=== PATIENT | male | born 1970 | race Hispanic/Latino ===

== ENCOUNTER → 2018-10-26 | Day surgery (SDC) | payer OTHER ==
[~2018-10-26] MED LIST: DEXAMETHASONE SOD PHOS INJ 4 MG/ML VIAL ONE; EPINEPHRINE HCL 1:1000 1ML 1 MG/ML AMP ONE; FENTANYL CITRATE/PF 100MCG/2 ML INJ ONE; GLYCOPYRROLATE INJ 1MG/ 5 ML SYR ONE; LIDOCAINE HCL 2% JELLY 5 ML TUBE ONE; LIDOCAINE HCL 2% LOCAL INJ 5 ML SDV VIAL INJ ONE; METFORMIN HCL500 MG PO; MIDAZOLAM HCL 2 MG/2 ML VIAL ONE; NEOSTIGMINE 5 MG/5ML SYR ONE; ONDANSETRON HCL INJ 2MG/ML 2ML 2 MG/ML VIAL ONE; PHENYLEPHRINE HCL 1% NA SPR 15 ML BTL ONE; PROPOFOL IV EMULSION 10 MG/ML 20 ML VIAL ONE; ROCURONIUM BROMIDE 10 MG/ML 5ML VIAL ONE; SEVOFLURANE INHAL SOLN 250 ML PEN BTL ONE
--- OUTSIDE RECORDS SUMMARY | 2018-10-26 05:21 | XMS REPORT | Clinical Summary ---
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 Active LORATADINE/PSEUDOEPHEDRIN Take 1 tablet 0 E (CLARITIN-D 12 HOUR by mouth ORAL) daily. Active dexlansoprazole Take 60 mg by 0 (DEXILANT) 60 mg capsule mouth daily. Active celecoxib (CeleBREX) 200 TAKE ONE 14 capsule 0 MG capsule CAPSULE BY 8 MOUTH TWICE A DAY FOR 7 DAYS 02/09/2018 Discontinued omeprazole (PriLOSEC) 40 Take 1 0 MG capsule capsule by 7 mouth daily. 02/09/2018 Discontinued lisinopril Take 5 mg by 0 (PRINIVIL,ZESTRIL) 5 mg mouth daily. tablet 02/09/2018 Discontinued pregabalin (LYRICA) 75 MG Take 1 90 capsule 11 capsuleIndications: capsule (75 7 Diabetic polyneuropathy mg total) by associated with type 2 mouth 3 diabetes mellitus (HCC), (three) times Occipital neuralgia of a day. right side 02/09/2018 Discontinued DULoxetine (CYMBALTA) 20 Take 2 30 capsule 0 MG capsuleIndications: capsules (40 7 Diabetic polyneuropathy mg total) by associated with type 2 mouth daily. diabetes mellitus (HCC), 40 mg PO qD x Bilateral lumbar 7d; then 20 radiculopathy mg PO qD x 7d, then stop 02/27/2018 HYDROcodone-acetaminophen Take 15 mL by 0 (HYCET) 2.5-108.3 mg/5 mL mouth every 4 8 solution (four) hours as needed for moderate pain for up to 7 days Earliest Fill Date: 02/20/18. Max Daily Amount: 90 mL 02/12/2018 Discontinued celecoxib (CeleBREX) 200 Take 1 14 capsule 0 02/09/201 MG capsule capsule (200 8 mg total) by mouth 2 (two) times a day for 7 days. 02/19/2018 metoclopramide (REGLAN) Take 1 tablet 30 tablet 0 10 MG tablet (10 mg total) 8 by mouth 3 (three) times a day for 10 days. 03/11/2018 docusate sodium (COLACE) Take 1 60 capsule 0 100 MG capsule capsule (100 8 mg total) by mouth 2 (two) times a day as needed for constipation for up to 30 days. 02/19/2018 Discontinued celecoxib (CeleBREX) 200 TAKE ONE 14 capsule 0 02/12/201 MG capsule CAPSULE BY 8 MOUTH TWICE A DAY FOR 7 DAYS Active Problems Problem Noted Date S/P Christine fundoplication (without gastrostomy tube) procedure 02/18/2018 Diabetic polyneuropathy associated with type 2 diabetes mellitus 10/06/2016 Neurogenic claudication due to lumbar spinal stenosis 08/19/2016 Chronic bilateral low back pain with bilateral sciatica 08/19/2016 Bilateral lumbar radiculopathy Cervical radiculopathy at C7 Encounters Care Team Description Date Type Specialty Michael Mcclain MD Post-operative state (Primary Dx) 04/05/2018 Office Visit General Surgery Miri Castrejon PA S/P Christine fundoplication (without gastrostomy tube) procedure (Primary Dx); BMI 29.0-29.9,adult; H/O esophageal reflux; Osteoarthritis of spine, unspecified spinal osteoarthritis complication status, unspecified spinal region 03/08/2018 Office Visit General Surgery Miri Castrejon PA 03/01/2018 Telephone General Surgery Miri Castrejon PA 02/20/2018 Refill General Surgery Mary Beth Hathaway NP 02/18/2018 Anesthesia General Surgery Event Michael Mcclain MD LAPAROSCOPIC HIATAL HERNIA REPAIR W/ MESH, WITH CHRISTINE FUNDOPLICATION 02/18/2018 Surgery General Surgery Michael Mcclain MD 02/18/2018 [facility] General Surgery - Encounter 02/19/2018 Miri Castrejon PA 02/12/2018 Refill General Surgery Miri Castrejon PA Gastroesophageal reflux disease with esophagitis (Primary Dx); Hiatal hernia; Regurgitation; Diabetes 1.5, managed as type 2; Chronic back pain, unspecified back location, unspecified back pain laterality 02/09/2018 Office Visit General Surgery Michael Mcclain MD Pre-operative exam 02/09/2018 Pre-Admit Pre-Admission Testing Testing Appointment Yen Gonzalez MA Pre-operative exam (Primary Dx) 02/02/2018 Orders Only General Surgery Michael Mcclain MD Hernia, hiatal (Primary Dx); Gastroesophageal reflux disease, esophagitis presence not specified 12/21/2017 Office Visit General Surgery after 10/25/2017 Family History Medical History Relation Name Comments Diabetes Brother Colon cancer Father Other Mother gallstones Relation Name Status Comments Brother Father Mother Social History Date Tobacco Use Types Packs/Day Years Used Never Smoker Smokeless Tobacco: Never Used Alcohol Use Drinks/Week oz/Week Comments Yes liquor twice a month at dinner in restaurants Sex Assigned at Date Recorded Not on file Industry Job Start Date Occupation Not on file Not on file Not on file Travel End Travel History Travel Start No recent travel history available. Last Filed Vital Signs Time Taken Vital Sign Reading 04/05/2018 10:03 AM [employer] COMP[employer] Blood Pressure 133/93 04/05/2018 10:03 AM [employer] Pulse 87 04/05/2018 10:03 AM [employer]IST Temperature 36.2 C (97.1 F) 04/05/2018 10:03 AM [employer]IST Respiratory Rate 16 04/05/2018 10:03 AM WORK[employer] COMP[employer]IST Oxygen Saturation 98% - Inhaled Oxygen - Concentration 04/05/2018 10:03 AM [employer] COMP[employer]IST Weight 90.9 kg (200 lb 6.4 oz) 04/05/2018 10:03 AM [employer] COMP[employer]IST Height 175.3 cm (5' 9") 04/05/2018 10:03 AM [employer]IST Body Mass Index 29.59 Plan of Treatment Health Maintenance Due Date Last Done Comments DIABETIC RETINAL EYE EXAM 1969 DIABETIC FOOT EXAM 10/23/1979 URINE MICROALBUMIN 10/23/1979 INFLUENZA VACCINE 12/16/2018 Implants Device Identifier Shelf Expiration Date Model / Serial / Lot Implanted Type Area Manufactur er 10/16/2018 [id number] / / [id number] Kit Selnt Fibrin Humn Hmsts Surgy Surgical N/A: N/A ETHICON 5ml Evicel - [id number] Implants; US-EH Implanted: 02/18/2018 (Quantity not Expanders; on file) Extenders; Surgical Wires 08/15/2020 [id number] / [id number] / [id number] Tissue Renfrcmnt Bioabsrbl 7x10cm Surgical N/A: N/A [employer] [place] Bio-A - [id number] Mesh or Implanted: 02/18/2018 (Quantity not Tissue on file) [employer] Procedures Comments Procedure Name Priority Date/Time Associated Diagnosis HC COMPLETE BLD COUNT Routine 02/19/2018 W/AUTO DIFF 2:30 AM CDT ESTIMATED GFR Routine 02/19/2018 12:00 AM CDT BASIC METABOLIC PANEL Routine 02/19/2018 12:00 AM CDT POC GLUCOSE Routine 02/18/2018 5:07 PM CDT VA AN ELECTIVE Routine 02/18/2018 ENDOTRACHEAL AIRWAY 1:16 PM CDT Procedure Note - Mary Gibbons, SEWER AND DRAIN TECHNICIAN - 02/18/2018 1:16 PM CDT Airway Date/Time: 02/18/2018 12:59 PM Performed by: MARY GIBBONS Authorized by: SRINIVASA REINOSO Location: OR Urgency: Elective Difficult Airway: No Other Anesthesia Staff: HOMA SZYMANSKI Preoxygena ryan with 100% O2: Yes C-spine Precaution s Maintained Throughout : No Mask Ventilatio n: Easy mask Final Airway Type: Endotrache al airway Final Endotrache al Airway: ETT Cuffed: Yes Technique Used: Direct laryngosco py Devices/Me thods Used in Placement: Intubatin g stylet Insertion Site: Oral Blade Type: [place] Laryngosco pe Blade/Vide olaryngosc ope Blade Size: 2 ETT Size (mm): 8.0 Measured from: Lips ETT to Lips (cm): 23 Placement Verified by: CO2 detection, direct visualizat ion and equal breath sounds Laryngosco pic view: Grade I - full view of glottis (with burp) Rapid Sequence Induction (RSI): No Modified RSI: No Number of Attempts at Approach: 1 Pre O2. Eyes taped with LOC on induction. DL X1, grade 1 view SRNA. ETT passed through hannah glottis atraumatic ally. Placement confirmed. Cuff to seal with minimal occlusive pressure. OG passed atraumatic ally. Teeth and mucosa unchanged. EGD, INTRAOPERATIVE 02/18/2018 Chronic GERD 11:10 AM CDT Hernia, diaphragmatic Case Notes POSSIBLE EXTENDED RECOVERY NEEDED, MESH Special Needs POSSIBLE EXTENDED RECOVERY NEEDED, MESH FUNDOPLICATION, CHRISTINE, 02/18/2018 Chronic GERD LAPAROSCOPIC 11:10 AM CDT Hernia, diaphragmatic Case Notes POSSIBLE EXTENDED RECOVERY NEEDED, MESH Special Needs POSSIBLE EXTENDED RECOVERY NEEDED, MESH POC GLUCOSE Routine 02/18/2018 10:12 AM CDT TYPE AND SCREEN Routine 02/09/2018 Pre-operative exam 11:00 AM CDT ECG PRE/POST OP Routine 02/09/2018 Pre-operative exam 10:52 AM CDT ESTIMATED GFR Routine 02/09/2018 10:44 AM CDT CBC HEMOGRAM Routine 02/09/2018 Pre-operative exam 10:44 AM CDT BASIC METABOLIC PANEL Routine 02/09/2018 Pre-operative exam 10:44 AM CDT after 10/25/2017 Results * CBC with platelet and differential (02/19/2018 2:30 AM CDT) WBC 11.09 (H) 4.50 - 11.00 k/uL [facility] DEPARTMENT OF PATHOLOGY AND GENOMIC MEDICINE RBC 4.54 4.40 - 6.00 m/uL [facility] DEPARTMENT OF PATHOLOGY AND GENOMIC MEDICINE HGB 13.6 (L) 14.0 - 18.0 g/dL [facility] DEPARTMENT OF PATHOLOGY AND GENOMIC MEDICINE HCT 40.7 (L) 41.0 - 51.0 % [facility] DEPARTMENT OF PATHOLOGY AND GENOMIC MEDICINE MCV 89.6 82.0 - 100.0 fL [facility] DEPARTMENT OF PATHOLOGY AND GENOMIC MEDICINE MCH 30.0 27.0 - 34.0 pg [facility] DEPARTMENT OF PATHOLOGY AND GENOMIC MEDICINE MCHC 33.4 31.0 - 37.0 g/dL [facility] DEPARTMENT OF PATHOLOGY AND GENOMIC MEDICINE RDW - SD 37.7 37.0 - 55.0 fL [facility] DEPARTMENT OF PATHOLOGY AND GENOMIC MEDICINE MPV 9.7 8.8 - 13.2 fL [facility] DEPARTMENT OF PATHOLOGY AND GENOMIC MEDICINE Platelet count 222 150 - 400 k/uL [facility] DEPARTMENT OF PATHOLOGY AND GENOMIC MEDICINE Nucleated RBC 0.00 /100 WBC [facility] DEPARTMENT OF PATHOLOGY AND GENOMIC MEDICINE Neutrophils 84.0 (H) 39.0 - 69.0 % [facility] DEPARTMENT OF PATHOLOGY AND GENOMIC MEDICINE Lymphocytes 7.2 (L) 25.0 - 45.0 % [facility] DEPARTMENT OF PATHOLOGY AND GENOMIC MEDICINE Monocytes 8.4 0.0 - 10.0 % [facility] DEPARTMENT OF PATHOLOGY AND GENOMIC MEDICINE Eosinophils 0.0 0.0 - 5.0 % [facility] DEPARTMENT OF PATHOLOGY AND GENOMIC MEDICINE Basophils 0.1 0.0 - 1.0 % [facility] DEPARTMENT OF PATHOLOGY AND GENOMIC MEDICINE Immature 0.3Comment: "Immature 0.0 - 1.0 % [facility] DEPARTMENT granulocytes granulocytes" (promyelocytes, OF PATHOLOGY myelocytes, metamyelocytes) AND GENOMIC MEDICINE Specimen Blood Performing Organization Address City/[facility]/Zipcode Phone Number [facility] [place] [address] PATHOLOGY AND GENOMIC MEDICINE * Estimated GFR (02/19/2018 12:00 AM CDT) Only the most recent of 2 results within the time period is included. Estimated GFR >=90 mL/min/1.73 m2 [facility] DEPARTMENT Comment: OF PATHOLOGY CatergoryUnitsInte AND GENOMIC rpretation MEDICINE G1 >=90 Normal or high G2 60-89Mildly decreased S4d20-03 Mildly to moderately decreased [id number] Moderately to severely decreased G4 15-29Severely decreased G5 <15Kidney failure The eGFR was calculated using the Chronic Kidney Disease Epidemiology Collaboration (CKD-EPI) equation. Interpretation is based on recommendations of the National Kidney Foundation-Kidney Disease Outcomes Quality Initiative (NKF-KDOQI) published in 2014. Specimen Plasma specimen Performing Organization Address City/[facility]/Zipcode Phone Number [facility] DEPARTMENT OF [address] [place] [address] PATHOLOGY AND GENOMIC MEDICINE * Basic metabolic panel (02/19/2018 12:00 AM CDT) Only the most recent of 2 results within the time period is included. Sodium 139 135 - 148 mEq/L [facility] DEPARTMENT OF PATHOLOGY AND GENOMIC MEDICINE Potassium 4.2 3.5 - 5.0 mEq/L [facility] DEPARTMENT OF PATHOLOGY AND GENOMIC MEDICINE Chloride 102 98 - 112 mEq/L [facility] DEPARTMENT OF PATHOLOGY AND GENOMIC MEDICINE CO2 22 (L) 24 - 31 mEq/L [facility] DEPARTMENT OF PATHOLOGY AND GENOMIC MEDICINE Anion gap 15@ANIO 7 - 15 mEq/L [facility] DEPARTMENT OF PATHOLOGY AND GENOMIC MEDICINE BUN 16 6 - 20 mg/dL [facility] DEPARTMENT OF PATHOLOGY AND GENOMIC MEDICINE Creatinine 0.88 0.70 - 1.20 mg/dL [facility] DEPARTMENT OF PATHOLOGY AND GENOMIC MEDICINE Glucose 155 (H) 65 - 99 mg/dL [facility] DEPARTMENT OF PATHOLOGY AND GENOMIC MEDICINE Calcium 8.9 8.3 - 10.2 mg/dL [facility] DEPARTMENT OF PATHOLOGY AND GENOMIC MEDICINE Specimen Plasma specimen Performing Organization Address [facility] Phone Number [facility] [place] [address] PATHOLOGY AND GENOMIC MEDICINE * POC glucose (02/18/2018 5:07 PM CDT) Only the most recent of 2 results within the time period is included. Pathologist [facility] POC glucose 166 (H) 65 - 99 mg/dL [facility] DEPARTMENT Comment: OF PATHOLOGY [facility] Notified RN AND GENOMIC Meter ID: [id number] MEDICINE Lehr Stripper: Lennie Diana Specimen Performing Organization Address City/[facility]/Zipcode Phone Number [facility] [place] [address] PATHOLOGY AND GENOMIC MEDICINE * Type and screen (02/09/2018 11:00 AM CDT) ABO grouping O [facility] DEPARTMENT OF PATHOLOGY AND GENOMIC MEDICINE Rh type POS [facility] DEPARTMENT OF PATHOLOGY AND GENOMIC MEDICINE Antibody screen NEG [facility] DEPARTMENT (gel) OF PATHOLOGY AND GENOMIC MEDICINE Specimen Blood Performing Organization Address City/[facility]/[place] [address] PATHOLOGY AND GENOMIC MEDICINE * ECG Pre/Post Op (02/09/2018 10:52 AM CDT) Ventricular 69 [facility] rate Atrial rate 69 [facility] VA interval 136 [facility] QRSD interval 102 [facility] QT interval 400 [facility] QTC interval 428 [facility] P axis 1 27 [facility] QRS axis 1 60 [facility] MUSE T wave axis 23 [facility] MUSE EKG impression Normal sinus [facility] MUSE rhythm-Nonspecific T wave abnormality-Abnormal ECG-No previous ECGs available- Specimen Performing Organization Address City/[facility] Corporation[facility] Phone Number [facility] MUSE [address] [place] [address] * CBC hemogram (02/09/2018 10:44 AM CDT) WBC 6.14 4.50 - 11.00 k/uL [facility] DEPARTMENT OF PATHOLOGY AND GENOMIC MEDICINE RBC 5.04 4.40 - 6.00 m/uL [facility] DEPARTMENT OF PATHOLOGY AND GENOMIC MEDICINE HGB 15.1 14.0 - 18.0 g/dL [facility] DEPARTMENT OF PATHOLOGY AND GENOMIC MEDICINE HCT 44.6 41.0 - 51.0 % [facility] DEPARTMENT OF PATHOLOGY AND GENOMIC MEDICINE MCV 88.5 82.0 - 100.0 fL [facility] DEPARTMENT OF PATHOLOGY AND GENOMIC MEDICINE MCH 30.0 27.0 - 34.0 pg [facility] DEPARTMENT OF PATHOLOGY AND GENOMIC MEDICINE MCHC 33.9 31.0 - 37.0 g/dL [facility] DEPARTMENT OF PATHOLOGY AND GENOMIC MEDICINE RDW - SD 38.5 37.0 - 55.0 fL [facility] DEPARTMENT OF PATHOLOGY AND GENOMIC MEDICINE MPV 9.7 8.8 - 13.2 fL [facility] DEPARTMENT OF PATHOLOGY AND GENOMIC MEDICINE Platelet count 272 150 - 400 k/uL [facility] DEPARTMENT OF PATHOLOGY AND GENOMIC MEDICINE Nucleated RBC 0.00 /100 WBC [facility] DEPARTMENT OF PATHOLOGY AND GENOMIC MEDICINE Specimen Blood Performing Organization Address City/[facility] Corporationcode Phone Number [facility] DEPARTMENT OF [address] [place] [address] PATHOLOGY AND GENOMIC MEDICINE after 10/25/2017 Insurance Type Payer Benefit Subscriber ID Effective Phone Address Plan / Dates Group PPO AETNA AETNA PPO xxxxxxxxx 2001 OPEN -Present CHOICE Advance Directives Patient has advance care planning documents on file. For more information, pleas e contact: Gavino Goldman [address] [place] [address]
[2018-10-26 06:54] LABS: ANION GAP 10.1 mmol/L (8-16); BLOOD UREA NITROGEN 19 mg/dL (7-26); BUN/CREATININE RATIO 19 (6-25); CALCIUM 9.6 mg/dL (8.4-10.2); CARBON DIOXIDE 29 mmol/L (22-29); CHLORIDE 104 mmol/L (98-107); CREATININE, SERUM 1.01 mg/dL (0.72-1.25); EST GLOMERULAR FILTRATION RATE > 60 ML/MIN (60-); GLUCOSE 105 mg/dL (74-118); POTASSIUM 4.1 mmol/L (3.5-5.1); SODIUM 139 mmol/L (136-145)
--- NOTE | 2018-10-26 07:11 | NUR ---
SPIRITUAL CARE - Pre-Surgery Assessment: Pt in bed. Pt's at bedside. Pt reported supportive attention from family and friends. Intervention: I provided pastoral presence, hospitality, and sympathetic listening. I acquainted pt with availability of machine set up operator paper goods while hospitalized. Outcome: Pt expressed appreciation for visit. No need for follow up indicated at this time. DOUGLAS Eliaslain Spiritual Care Department O: [phone] Pager: [phone] ([phone] number calling from)
[2018-10-26 09:53] VITALS: BP 126/81
--- NOTE | 2018-10-26 13:41 | Operative Report ---
DATE OF PROCEDURE: 10/26/2018 SURGEON: Jimi Beckett MD CHIEF COMPLAINT: Hoarseness and lesion in the vocal folds, more on the left side. POSTOPERATIVE DIAGNOSIS: Hoarseness and lesion in the vocal folds, more on the left side. OPERATIVE PROCEDURE: Direct laryngoscopy, rigid esophagoscopy, rigid bronchoscopy, microlaryngoscopy, micro flap resection of lesion in the left vocal fold. ANESTHESIA: Anesthesiology group. INDICATIONS: This 48-year-old male has a one-year history of hoarseness. The patient has history of reflux and after that was treated, the hoarseness did not improve. On examination, he was noted to have polypoid changes in vocal folds on both sides, worse on the left. The patient is a nonsmoker and a social drinker. He has no thyroid problem. It was decided that panendoscopy, microlaryngoscopy, micro flap resection of vocal fold lesion and other necessary procedure will be beneficial for him. PROCEDURE IN DETAIL: The patient was taken to the operating room, put under general anesthesia, endotracheally intubated. The patient was positioned for panendoscopy. The rigid esophagoscopy was performed. The Esophagoscope was passed through the cricopharyngeus muscle. Esophagus was examined to about 25 cm from the incisors, no abnormality was noted. The esophagoscope was retrieved. The rigid bronchoscopy was performed. A size #4 bronchoscope with Shelton wire was used. The bronchoscope was passed parallel to the endotracheal tube. Endotracheal tube cuff was deflated. Trachea was examined. On the brisa, no abnormality was noted. The bronchoscope was retrieved. Endotracheal tube cuff was reinflated. Direct laryngoscopy was performed. A Dedo laryngoscope was used. The oropharynx and oral cavity were examined, no obvious abnormality was noted. The piriform sinus on either side was examined, no abnormality was noted. The larynx was examined, polypoid changes were noted in the left vocal fold, the right vocal fold appeared normal. The false vocal folds did not show any abnormality. The microlaryngoscopy was performed. The laryngoscope was put on suspension and operating microscope was brought in. The larynx was further examined. On further examination under the microscope, the lesion in the vocal fold on the left side looked more papillary in appearance. Right vocal folds did not show any abnormalities. The micro flap biopsy of the lesion in the vocal folds on the left side was undertaken. Using microlaryngeal instruments, an incision was made in the superior portion of the vocal fold. The micro flap was elevated in Oli space with care. The lesion mainly in the posterior and middle portion of the vocal folds was dissected above the plane of the Oli space and sent for permanent section. Some of these have to come out in piecemeal. Hemostasis was achieved using epinephrine-soaked pledgets. The patient tolerated the above procedure well with minimal blood loss. He was given 20 mg of Decadron intraoperatively. The patient was able to be transferred to recovery room in a stable condition. MD MAVERICK Hammonds/MODL /[id number]
--- NOTE | 2018-11-02 04:13 | Pre Op History & Physical ---
DATE OF SURGERY: 10/26/2018. CHIEF COMPLAINT: Hoarseness and polypoid vocal folds. HISTORY OF PRESENT ILLNESS: This 48-year-old male has history of hoarseness since February of 2018. The patient initially thought it might be hoarseness for a year. The patient has history of gastroesophageal reflux with hiatal hernia. The patient was told that the hoarseness might improve after a hiatal hernia repair, but it has not. The patient denies any dysphagia, odynophagia. He has no shortness of breath. The patient is a social drinker, but is nonsmoker. He has no history of thyroid problems. REVIEW OF SYSTEMS: Showed no recent cardiovascular, respiratory, or GI problem. PAST MEDICAL HISTORY: The patient has no significant medical problems. PAST SURGICAL HISTORY: He had a hiatal hernia repair in February 2018. ALLERGIES: HE HAS NO KNOWN ALLERGIES TO MEDICATIONS. MEDICATIONS: He is on metformin. SOCIAL HISTORY: He is a nonsmoker. Social drinker. FAMILY HISTORY: Noncontributory. PHYSICAL EXAMINATION: VITAL SIGNS: On examination, the patient's vital signs were within normal limits. HEENT: Ear exam showed normal tympanic membrane bilaterally. Nasal exam show the nasal septum on the right side about 20%. Oropharynx and oral cavity show 2+ tonsils bilaterally with Mallampati level 3. Flexible laryngoscopy examination showed the patient has mobile vocal folds bilaterally with polypoid vocal folds on both sides, worse on the left. NECK: Showed no lymph node or thyroid palpable.. CHEST: Showed good air entry bilaterally. CARDIOVASCULAR: Showed S1, S2. No murmur noted. ASSESSMENT AND PLAN: Mr. Mitchell has hoarseness with polyps in both vocal folds. This likely is the cause of his hoarseness. The suggestion is panendoscopy, microlaryngoscopy, and removal of the polyps with micro flaps in both vocal folds, and other necessary procedure. The complication of procedure includes, but not limited to bleeding, infection, perforation of the esophagus, pneumomediastinum, immediate sinusitis, airway compromise, persistent recurrence of hoarseness. Alternative will be continue observation, continue antibiotic therapy. Repeat flexible laryngoscopy exam and biopsy of the vocal folds in the office setting. The patient has elected to undergo surgical procedure. MD MAVERICK Hammonds/BRIANAL /[id number] cc:
== END | disposition home or self-care (01) ==
LOC: OR 05:13
PROVIDERS: ATTEND Otolaryngology Otolaryngology/Facial Plastic Surgery
DX: D14.1 Benign neoplasm of larynx (principal); E11.9 Type 2 diabetes mellitus without complications; K21.9 Gastro-esophageal reflux disease without esophagitis; Z79.84 Long term (current) use of oral hypoglycemic drugs
CPT/HCPCS: 31541; 31622; 36415; 43191; 80048; 82948; 88305; 93005; J0171; J1100; J2001 ×2; J2250; J2405; J2704; J3490